=== PATIENT | female | born 1985 | race Caucasian/White ===

== ENCOUNTER 2018-11-11 01:39 | Inpatient (IN) | payer BC, SELFPAY ==
[2018-11-11 01:50] VITALS: BMI 33.8
[2018-11-11] MEDS: Lactated Ringers 1,000 ML 50 ML IV ×3 (02:05→07:55)
[2018-11-11 02:09] LABS: Hematocrit 33.4 % (37-47); Hemoglobin 11.1 g/dl (12.0-15.0); Mean Corp Hgb Conc 33.2 g/gl (32-36); Mean Corpuscular Hgb 28.4 pg (27.0-32.0); Mean Corpuscular Volume 85.4 fL (81-99); Mean Platelet Vol. 10.1 fl (6.2-12.0); Platelet Count 225 K/mm3 (150-450); RBC Distribution Width CV 13.5 % (11.6-14.6); RBC Distribution Width SD 41.7 fl (35.1-43.9); Red Blood Count 3.91 M/mm3 (4.2-5.4); White Blood Count 13.7 K/mm3 (4.4-11.0)
[2018-11-11 02:10] LABS: Scan Indicated on CBC? Y/N NO
[2018-11-11] MEDS: fentaNYL-bupivacaine (epidural) 100 ML BAG EPIDURAL ×2 (03:46→07:55)
--- NOTE | 2018-11-11 08:15 | PCM.HP.OB ---
History Date of Admission: 11/11/18 Final VICKI: 11/16/18 Gestational age: 39 Weeks and 2 Days History of this : This is a 33 year-old, @ 39+ weeks - presented with ruptured membranes in labor. Allergies No Known Allergies Allergy (Verified 11/11/18 01:48) Home Medications: Home Medications Pnv No.95/Ferrous Fum/Folic AC [ Caplet] 1 tab PO DAILY 11/11/18 Smoking Status: Former smoker Alcohol: None Number of Fetus(es): 1 Heart Tracins mod sony, +accels no decels TOCO Analysis: q2-4 min History Past Pregnancies: Past Pregnancies Delivery Date Name GA/Weeks Outcome Route Weight Gender Labor Length Anesthesia Delivery Location Provider FOB Labs: rub imm, hiv neg, hep b neg, syphilis neg, gbs neg, A+ Expected Infant Delivery Method: Spontaneous Vaginal Physical Exam General: Alert, Oriented x3 Neurological: Cranial nerves II-XII grossly intact Presentation: Cephalic Cervix Dilation (cm): 4.5 Assessment/Plan This is a 33 year-old, G 2P1, at 39+ weeks gestational age with SROM and in labor. 1) admit to L&D 2) monitor FHR/TOCO 3) Anticipate 4) GBS neg 5) epidural if requested for pain
--- NOTE | 2018-11-11 08:37 | PCM.PN.BLA ---
Progress Note Addendum: Sign out received from Hitesh Lopez MD. Cervical Exam done - patient is 0 with a retractable anterior lip. Patient reports she is numb with ctx and not able to feel much - desires anesthesia consult to evaluate epidural and possibly decrease dose. FHT baseline 130, moderate variability, + accels, no decels noted. Anticipate . Taina Mansfield APRN-NELSON
[2018-11-11] MEDS: Acetaminophen 325 MG Tablet PO (09:18)
[2018-11-11] MEDS: Oxytocin 30 units/NS 500 ml 30 UNITS/500 ML IV.SOLN IV (09:21)
[2018-11-11] MEDS: Oxytocin 30 units/NS 500 ml 30 UNITS/500 ML IV.SOLN 334 UNITS IV (11:06)
[2018-11-11] MEDS: Oxytocin 30 units/NS 500 ml 30 UNITS/500 ML IV.SOLN 167 UNITS IV (11:36)
--- NOTE | 2018-11-11 11:40 | PCM.OB.VAG ---
Vaginal Delivery Maternal Presentation: Active Labor, Spontaneous Rupture of Membranes Amniotic Membrane Rupture Type: Spontaneous Amniotic Fluid Description: Clear Final VICKI: 11/16/18 Gestational age: 39 Weeks and 2 Days Date of Procedure: 11/11/18 Pre-Operative Diagnosis: Spontaneous Labor Post-Operative Diagnosis: of viable baby girl Surgery/ Procedure Performed: Spontaneous Vaginal Delivery Anesthesiologist: Blaire Jeter Type of Anesthesia: Epidural Description of Procedure: Patient was found to be C/C/+1 station. Patient pushed well with urge and delivered a viable girl baby over 2nd degree lacerated perineum at 1100. head delivered OA, restituted to VANESA where anterior shoulder delivered without difficulty followed by posterior shoulder and body. then placed on maternal abdomen where was dried and stimulated. mouth and nose bulb suctioned and infant had spontaneous cry and respirations. Apgars 8 and 9. Wt. pending. Placenta delivered spontaneously via Benson mechanism intact with 3VC. Placental triage WNL. IV pitocin given per protocol for active management of 3rd stage of labor. Upon inspection of vaginal vault, 2nd degree perineal laceration noted. Repair done in the usual fashion using 3-0 Rapide under epidural analgesia. Sponge and needle count correct. EBL = 150cc. Vaginal sweep negative. [id number]-[id number] and initiated. Taina Mansfield DIRECTOR OF RESPIRATORY THERAPY-CNM Presentation: Vertex, VANESA Placental Delivery Description: Spontaneous Placenta Disposition: [facility] Cord Vessel Description: 3 Vessels Cord Entanglement: None Estimated Blood Loss: 150 A gender: Female (1 minute): 8 (5 minute): 9 Episiotomy Description: None Laceration: Perineal Extension/lac, 2nd degree Medications given after delivery: IV Pitocin Complications: None
--- NOTE | 2018-11-11 11:46 | OP.PCM_ITS ---
Vaginal Delivery Maternal Presentation: Active Labor, Spontaneous Rupture of Membranes Amniotic Membrane Rupture Type: Spontaneous Amniotic Fluid Description: Clear Final VICKI: 11/16/18 Gestational age: 39 Weeks and 2 Days Date of Procedure: 11/11/18 Pre-Operative Diagnosis: Spontaneous Labor Post-Operative Diagnosis: of viable baby girl Surgery/ Procedure Performed: Spontaneous Vaginal Delivery Anesthesiologist: Blaire Jeter Type of Anesthesia: Epidural Description of Procedure: Patient was found to be C/C/+1 station. Patient pushed well with urge and delivered a viable girl baby over 2nd degree lacerated perineum at 1100. head delivered OA, restituted to VANESA where anterior shoulder delivered without difficulty followed by posterior shoulder and body. then placed on maternal abdomen where was dried and stimulated. mouth and nose bulb suctioned and infant had spontaneous cry and respirations. Apgars 8 and 9. Wt. pending. Placenta delivered spontaneously via Benson mechanism intact with 3VC. Placental triage WNL. IV pitocin given per protocol for active management of 3rd stage of labor. Upon inspection of vaginal vault, 2nd degree perineal laceration noted. Repair done in the usual fashion using 3-0 Rapide under epidural analgesia. Sponge and needle count correct. EBL = 150cc. Vaginal sweep negative. Btch-es-jaen and initiated. Taina Mansfield FIELD CONTACT PERSON-CNM Presentation: Vertex, VANESA Placental Delivery Description: Spontaneous Placenta Disposition: [facility] Cord Vessel Description: 3 Vessels Cord Entanglement: None Estimated Blood Loss: 150 A gender: Female (1 minute): 8 (5 minute): 9 Episiotomy Description: None Laceration: Perineal Extension/lac, 2nd degree Medications given after delivery: IV Pitocin Complications: None
--- NOTE | 2018-11-11 11:47 | DCINST_ITS ---
Discharge Diet: No Restrictions Discharge Activity: Return to Normal Activity, May not drive while taking narcotic pain medications., May Shower May resume sexual activity in: 4-6 weeks Additional Activity Instructions:: Nothing in the vagina for 4-6 weeks. You may return to work/school in 6 weeks. Call your doctor if your incision/area has: Continuous Slow Oozing, Sudden Increased Bleeding, Increased Pain/ Swelling, Increased Redness, Foul Smelling Discharge Call your doctor if you observe: Fever of 101 or Higher, Inability to urinate, Inability to have a bowel movement, Using more than one pad per hour Additional Instructions: If you experience any of the following, contact your healthcare provider. * Bleeding that soaks a pad every hour for 2 hours * Fever 100.4 or higher * Unrelieved incision or abdominal pain * Swelling, redness, discharge or bleeding from your incision or episiotomy site * Your incision begins to separate * Problems urinating (including inability to urinate or burning while urinating). * Visual changes * Severe headache * Flu-like symptoms * Pain or redness in one of both of your breasts * Pain, warmth, tenderness or swelling in your legs, especially the calf area * Frequent nausea and vomiting * Symptoms of depression or anxiety If you experience any of the following, call 911 or go to the nearest Emergency Room. * Chest pain * Problems breathing * Seizure activity * Partial or complete paralysis of a body part, slurred speech, weakness or drooping of the face, or a sudden inability to walk or hold your balance Allergies/Adverse Reactions: Allergies No Known Allergies Allergy (Verified 11/11/18 01:48) Medications to take at Discharge Pnv No.95/Ferrous Fum/Folic AC [ Caplet] 1 tab PO DAILY 11/11/18 Please Follow Up With: Taina Mansfield CNM When: Call to make an appointment with your provider in 2 and 6 weeks. If you had elevated Blood Pressure or 4th degree laceration you will need to be seen in 1 week. Primary Care Physician: Tawanna Woodruff PA [Primary Care Provider] - Test Results: Test results from this visit will be discussed in further detail at your follow- up appointment, if applicable. Proposed Discharge Date: 11/13/18
[2018-11-11 15:44] VITALS: BP 125/75; PULSE 100; RESP 16; TEMP 36.9; O2SAT 96
[2018-11-11] MEDS: Ibuprofen 600 MG Tablet PO ×2 (16:35→22:16)
[2018-11-11 20:15] VITALS: BP 137/73; PULSE 87; RESP 14; TEMP 36.9; O2SAT 99
[2018-11-11] MEDS: Acetaminophen 500 MG Tablet 1000 MG PO (20:46)
[2018-11-12 01:00] VITALS: BP 108/82; PULSE 80; RESP 15; TEMP 36.9; O2SAT 97
[2018-11-12 05:00] VITALS: BP 113/70; PULSE 82; RESP 14; TEMP 36.2; O2SAT 99
[2018-11-12 08:42] VITALS: BP 123/80; PULSE 86; RESP 16; TEMP 36.2
--- NOTE | 2018-11-12 09:06 | PCM.PN.OB ---
Subjective: Doing well per patient and nursing staff. Ambulating and voiding without difficulty. Voiding and passing flatus. Denies headache, visual changes, chest pain, increased SOB, increased vaginal bleeding or clots. going well. Planning D/C home today. - Physical Exam General: Alert, Oriented x3, Cooperative HEENT: Atraumatic, Normocephalic Lungs: Clear to auscultation, Normal air movement, No rhonchi, No wheeze Cardiovascular: Regular rate, Regular Rhythm, No murmurs Abdomen: Bowel Sounds Present, - - Fundus firm 2 below U Extremities: Edema - +1 pitting BLE, - - Carol's negative Neurological: Deep Tendon Reflexes 2+/4 and Symmetrical Psych/Mental Status: Normal Affect, Appropriate Vital Signs Temp Pulse Resp BP Pulse Ox 97.2 F L 86 16 123/80 H 99 11/12/18 08:42 11/12/18 08:42 11/12/18 08:42 11/12/18 08:42 11/12/18 05:00 Oxygen Delivery Method Room Air Weight: 216 lb Body Mass Index (BMI) 33.8 Intake and Output for Last 24 Hours 11/10/18 11/11/18 11/12/18 23:59 23:59 23:59 Intake Total 4259 / 4259 Output Total 1725 / 1725 Balance 2534 / 2534 Medical Necessity - Tobacco Use Smoking Status: Former smoker Assessment/Plan A:PPD #1 P: 1) Reviewed and discharge instructions. 2) Follow up in 2 weeks and 6 weeks 3) Discharge home today
[2018-11-12] MEDS: Dibucaine 30 GM Tube 1 APPLIC TOPICAL (11:11)
[2018-11-12] MEDS: Senna/Docusate Sodium 1 Tablet PO (11:11)
[2018-11-12] MEDS: Ibuprofen 600 MG Tablet PO (11:22)
[2018-11-12 15:00] VITALS: BP 117/75; PULSE 88; RESP 20; TEMP 36.5
== END 2018-11-12 18:45 | disposition home or self-care (01) | DRG 807 ==
PROVIDERS: Admitting Provider Obstetrics & Gynecology; Family Provider Physician Assistant; PCP Physician Assistant; Referring Provider Obstetrics & Gynecology; Visit Provider Obstetrics & Gynecology
DX: O70.1 Second degree perineal laceration during delivery (principal); Z37.0 Single live birth; Z3A.39 39 weeks gestation of pregnancy; Z87.891 Personal history of nicotine dependence
CPT/HCPCS: 59025; 59050; 85027; 86850; 86900; 99218; J7120; G0378

== ENCOUNTER 2018-11-24 14:05 | Outpatient (CLI) | payer BC, SELFPAY | END 2018-11-24 15:35 | disposition home or self-care (01) | LOC: WPOUT 14:23 → WP 14:24 | PROVIDERS: Family Provider Physician Assistant; PCP Physician Assistant; Referring Provider Advanced Practice Midwife; Visit Provider Advanced Practice Midwife | DX: O92.79 Other disorders of lactation (principal) | CPT/HCPCS: 96152 ==

== ENCOUNTER 2022-11-01 09:29 | Day surgery (SDC) | payer BC, SELFPAY ==
--- NOTE | 2022-10-31 11:52 | PCM.HP.BLA ---
History and Physical Date of Admission: 11/01/22 Pre-Op History and Physical ? ? HPI: Done via zoom- original H&P done in office on 10/01/22: The patient is a 37 year old female presenting for pre-operative visit. She is scheduled for Laparoscopic Salpingectomy and MIRENA iud removal for desires sterilization and irregular bleeding with IUD in place on 11/01/22. Procedure discussed along with risks, benefits and complications. Other alternatives discussed for management. Consent form signed? Will need to resign tomorrow as it was signed on 10/01/22 . ? ? PAST MEDICAL HISTORY PAST MEDICAL HISTORY Diagnosis Date ? Anemia during in second trimester 08/25/2018 ? ? PAST SURGICAL HISTORY PAST SURGICAL HISTORY Procedure Laterality Date ? PAST SURGICAL HISTORY OF ? ? ? [place] teeth ? ? ? CURRENT MEDICATIONS Current Outpatient Medications Medication Sig Dispense Refill ? sertraline (ZOLOFT) 50 mg tablet Take 50 mg by mouth once daily. ? ? ? levonorgestrel (MIRENA) 20 mcg/24 hours (8 yrs) 52 mg IUD 1 Each by INTRAUTERINE route continuous. ? ? ? MULTIVITAMIN ORAL Take by mouth. ? ? ? ranitidine HCl (ZANTAC ORAL) Take by mouth. ? ? ? Ferrous Sulfate (SLOW FE) 142 mg (45 mg iron) TbER Take by mouth. ? ? ? Qfwtssgy-Et-Bmm-Fe-FA tab Take 1 tablet by mouth. ? ? ? No current facility-administered medications for this visit. ? ? ALLERGIES: Seasonal Allergies ? PERSONAL HISTORY: SOCIAL HISTORY Social History ? Tobacco Use ? Smoking status: Every Day ? ? Years: 16.00 ? ? Types: Cigarettes ? ? Last attempt to quit: 02/05/2018 ? ? Years since quittin.7 ? Smokeless tobacco: Never ? Tobacco comments: ? ? Vaping Substance Use Topics ? Alcohol use: No ? Drug use: No ? FAMILY HISTORY: FAMILY HISTORY FAMILY HISTORY Problem Relation Age of Onset ? Cancer Mother ? ? OVARIAN ? Hypertension Father ? ? Heart Father ? ? Cancer Maternal Grandfather ? ? Heart Brother ? ? Stroke Brother ? ? Heart Paternal Grandfather ? ? ? REVIEW OF SYMPTOMS: negative except as noted above Pt reports no change in medical history since last visit. PHYSICAL EXAMINATION: ? VITALS: Last menstrual period 02/09/2018. ? GENERAL: The patient is well nourished, well hydrated in no acute distress. , The patient is oriented to time, place, and person. NECK: full range of motion ? ? IMPRESSION: 37-year-old desires permanent sterilization and Mirena IUD removal for abnormal uterine bleeding ? PLAN: Laparoscopic bilateral salpingectomy and removal of Mirena IUD ? Pt has been counseled on risks/benefits and alternatives of surgery including but not limited to anesthesia, bleeding, infection, injury to pelvic structures including bowel, bladder, ureters and vessels. Pt wishes to proceed with surgery at this time. ? Will sign consent tomorrow ? Pre and post op orders reviewed. ? I have reviewed and updated past medical and surgical history, medications and allergies Cate Lopez MD
--- NOTE | 2022-11-01 | FALS_PTH ---
PATIENT: ANNA FODR LOC: [facility] [place] U#:[id number] AGE/SX: 37/F ROOM: RE11/01/[address]: Dr. Cate Gamboa, MDDOB: 1985 BED: DIS: 11/01/2022 SPEC #: [id number] RECD: 11/01/22 13:55 STATUS: ALISIA BRIAN #: [id number] RICCO: 11/01/22 00:[address]: Cate Gamboa DEPT: SURGICAL PATHOLOGY RECD BY: Hunter Avery ENTERED: 11/01/22 13:55 SP TYPE: FALL TUBES OTHR DR: MO Nina Tissues: Fallopian tube Procedures: Surgery Specimen Level II HEADER OPERATION: Laparoscopic salpingectomy, Mirena IUD removal PRE-OP DIAGNOSIS: Sterilization TISSUE SUBMITTED: Bilateral fallopian tubes MICROSCOPIC DIAGNOSIS Bilateral fallopian tubes, salpingectomy: Bilateral fallopian tubes, no pathologic diagnosis. ELVIS:julia 11/02/2022 MICROSCOPIC DESCRIPTION Slides are reviewed. GROSS DESCRIPTION Received in fixative is one container labeled with the patient's name and designated bilateral fallopian tubes. The specimen consists of bilateral fallopian tubes including fimbrial ends measuring 7 cm in length and 1 cm in diameter and 6.5 cm in length and 0.6 cm in diameter. The fallopian tubes are not identified as right or left. Sections reveal unremarkable cut surfaces. Transitions Manager Rn sections are submitted in two cassettes with each cassette containing one fallopian tube. / Katalina 11/01/2022 TC:4 CPT: 90686 x2
[2022-11-01 09:54] LABS: Internal QC Validated? YES +Cl - CLEAR BKGD; Pregnancy, Urine Negative Negative
[2022-11-01 09:57] VITALS: BP 129/79; PULSE 65; RESP 16; TEMP 36.3; O2SAT 100; BMI 31.8
[2022-11-01] MEDS: Lactated Ringers 1,000 ML 15 ML IV (10:01)
[2022-11-01 10:06] LABS: Hematocrit 39.7 % (37-47); Mean Corp Hgb Conc 32.7 g/dL (32-36); Mean Corpuscular Hgb 28.2 pg (27.0-32.0); Mean Corpuscular Volume 86.1 fL (81-99); Mean Platelet Vol. 9.7 fl (6.2-12.0); Platelet Count 343 K/mm3 (150-450); RBC Distribution Width CV 12.6 % (11.6-14.6); RBC Distribution Width SD 39.4 fl (35.1-43.9); Red Blood Count 4.61 M/mm3 (4.2-5.4); White Blood Count 8.1 K/mm3 (4.4-11.0)
--- NOTE | 2022-11-01 10:09 | DCINST_ITS ---
Discharge Instructions Procedure Other Diet Discharge Diet: No restrictions Activity May resume sexual activity in: 2 weeks Lifting Restrictions: 20-25 lbs Dressing / Incision Call your doctor if your incision/area has: Continuous Slow Oozing, Sudden Increased Bleeding, Increased Pain/ Swelling, Increased Redness, Foul Smelling Discharge and Swelling at the incision site Call your doctor if you observe: Fever of 101 or Higher, Inability to urinate, Inability to have a bowel movement, Using more than 1 pad per hour and Uncontrolled pain Additional Dressing/Incision Instructions:: You have skin glue over your incision sites, do not pick off. You may shower and let the soap and water run over the incision sites and dab dry. Follow Up Care Please Follow Up With: Cate Gamboa MD When: 1-2 weeks post OP if you need an appointment please call [phone] Test Results: Test results from this visit will be discussed in further detail at your follow- up appointment, if applicable. Discharge Plan Admission Attending Provider: Cate Gamboa Primary Care Provider: Tawanna Woodruff Discharge Orders/Prescriptions Prescriptions: No Action sertraline 50 mg tablet 50 mg PO DAILY Referrals / Follow Up: Tawanna Woodruff PA [Primary Care Provider] - Disposition Disposition (needs filled in before D/C Order can be placed): Home, Self Care
[2022-11-01] MEDS: Bupivacaine Mpf 0.5% 30 ML VIAL (10:55)
--- NOTE | 2022-11-01 11:03 | OP.PCM_ITS ---
Report of Operation Date of Procedure: 11/01/22 Pre-Operative Diagnosis: Desires sterilization, IUD removal Post-Operative Diagnosis: same Surgery/Procedure Performed:: Laparoscopic Bilateral Salpingectomy , Mirena IUD removal Description of Surgical Findings:: Normal Ovaries , uterus and fallopian tubes Surgeon: Cate Gamboa Type of Anesthesia: General and Local Special Medications: .5% Marcaine Specimen's removed: bilateral fallopian tubes Estimated Blood Loss (mL): <5cc Fluids Replaced: 800 Description of Procedure: After informed consent was obtained patient was taken to the operating room she was placed in supine position she was given anesthesia. She was then placed in the [facility] stirrups and she was prepped and draped in normal sterile fashion. Bladder was drained prior to the start of procedure. At this time att ention was turned to the vaginal portion where weighted speculum placed at posterior fornix vagina single-tooth tenaculum was used to gently grasp the internal the cervix. uterus was gently sounded to approximately 8cm. IUD stings visualized and mirena IUD was Removed intact. Uterine manipulator was placed without difficulty. Legs then placed in parallel with the abdomen the tenaculum and the weighted speculum were removed. 2 towel clamps were placed at level of umbilicus. Marcaine was injected infraumbilical and a small incision was made. The 5 mm trocar was placed under direct visualization. CO2 gas was used to insufflate the intra-abdominal cavity. Upon inspection no gross abnormalities appreciated- the uterus tubes and ovaries appeared to be normal. At this time then the LLQ and RLQ ports were placed First Marcaine was injected and small incision was made a knife and the 5 mm trocars were placed. At this time then tubes were traced back to the fimbriated ends. Enseal was used to coagulate and ligate along mesosalpinx bilaterally until tubes removed completely. Good hemostasis was appreciated. At this time procedure was deemed complete successful. The gas was desufflated on from the intra-abdominal cavity. The trochars were removed. Skin was closed using 4-0 Monocryl in a subcutaneous fashion. Dermabond glue was placed. Instrument lap and needle counts were correct ?2. The uterine manipulator was removed. Vaginal sweep was performed it was negative. There were no complications anticipated normal postoperative course for this patient. Grafts/Implants Used: none Procedure Start Time: 10:35 Procedure Stop Time: 11:00 Complications none Admit VTE Documentation VTE Present on Admission: Yes VTE Mechan Device Prophylaxis: SCD's VTE Pharm Prophylaxis ordered?: No Reason prophylaxis not ordered:: Procedure Not Indicated
[2022-11-01 11:12] VITALS: BP 100/70; BP 129/79; PULSE 74; RESP 16; TEMP 36.2; O2SAT 96
[2022-11-01 11:15] VITALS: BP 117/61; BP 129/79; PULSE 60; RESP 16; O2SAT 97
[2022-11-01 11:30] VITALS: BP 101/63; BP 129/79; PULSE 62; RESP 16; O2SAT 99
[2022-11-01 11:40] VITALS: BP 104/82; BP 129/79; PULSE 59; RESP 16; TEMP 36.3; O2SAT 98
[2022-11-01 12:10] VITALS: BP 102/72; BP 129/79; PULSE 64; RESP 18; TEMP 36.2; O2SAT 97
== END 2022-11-01 12:15 | disposition home or self-care (01) ==
LOC: SDC 09:31 → AC 09:32
PROVIDERS: PCP Physician Assistant; Referring Provider Obstetrics & Gynecology; Visit Provider Obstetrics & Gynecology
PROC: (CPT 58661; principal; 2022-11-01 10:55)
DX: Z30.2 Encounter for sterilization (principal); Z30.432 Encounter for removal of intrauterine contraceptive device; N93.9 Abnormal uterine and vaginal bleeding, unspecified; Z86.19 Personal history of other infectious and parasitic diseases; F41.9 Anxiety disorder, unspecified; F32.A Depression, unspecified
CPT/HCPCS: 58301; 58661; 00840; 81025; 85027; 88302; J7120; C1760; J2405